=== PATIENT | female | born 1950 | race Caucasian/White ===

== ENCOUNTER 2019-12-18 11:59 | Emergency (ER) | payer OTHER ==
[~2019-12-18] VITALS: Ht 157.5 cm; Wt 77.6 kg
[~2019-12-18 11:59] MED LIST: ACETAMINOPHEN PO; ALLERGY10 MG PO; CALCIUM-VITAMI1 EAC1 PO; CLARITIN10 MG PO; CLONAZEPAM PO; EFFEXOR XR75 MG PO; FLONASE 0.05%50 MCG NASAL; FLUOXETINE HCL40 MG PO; GENERLAC PO; GLIPIZIDE ER2.5 MG PO; HUMULIN N100 UNIT/1; LANTUS SUBQ; LISINOPRIL20 MG PO; LORTAB 5-500 T1 EAC1 PO; MIRALAX255 GM PO; MULTIVITAMIN W1 EAC5 PO; NASONEX17 GM NS; NIZORAL120 ML TP; NORVASC 5 MG TAB5 MG PO; NOVOLOG MI100 UNIT/2; OS-CAL 500+D C1 EACH PO; PENICILLIN VK500 M1 PO; PRINIVIL20 MG PO; PROTONIX40 M2 PO; RESTORIL15 MG PO; SENNA-LAX8.6 MG PO; SENOKOT-S1 TA1 PO; SPIRIVA INH; SYMBICORT160 MCG/4. INH; TOPROL OR; TOPROL XL50 MG PO; TRIPLE FLEX PO; VENTOLIN HFA 1818 GM INH; VICODIN 5-5001 EACH PO; VITAMIN D 5050000 I1 PO; VITAMIN D1000 UNI1 PO; ZANAFLEX4 M1 PO; ZOCOR 20 MG TAB20 M1 PO; ZYPREXA2.5 MG PO; ZYPREXA5 MG PO
[2019-12-18 15:54] VITALS: BP 128/40
== END 2019-12-18 16:42 | disposition home or self-care (01) ==
LOC: ER 11:59
DX: M54.2 Cervicalgia (principal); I10 Essential (primary) hypertension; E78.5 Hyperlipidemia, unspecified; F31.9 Bipolar disorder, unspecified; F17.210 Nicotine dependence, cigarettes, uncomplicated